=== PATIENT | male | born 1955 | race Caucasian/White ===

== ENCOUNTER 2019-05-04 07:23 | Day surgery (SDC) | payer MEDICARE, BC ==
[2019-05-04] MEDS ORDERED: Lidocaine 2% 100 MG/5 ML Syringe IVPUSH ONE (07:24)
[2019-05-04] MEDS ORDERED: Propofol 200 MG/20 ML SDV IV ONE (07:24)
[2019-05-04] MEDS ORDERED: Lactated Ringers 1,000 ML IV SCH (07:30)
[2019-05-04] MEDS ORDERED: Sodium Chloride 0.9% 10 ML Syringe FLUSH PRN (07:30)
--- NOTE | 2019-05-04 09:42 | PCM.OPNOTE ---
- General Post-Op/Procedure Note Date of Surgery/Procedure: 05/04/19 Operative Procedure(s): EGD and Colonoscopy with Polypectomy Findings: Samll trans Colon Polyp Pre Op Diagnosis: GERD. Colon Screening Post-Op Diagnosis: Same Anesthesia Technique: FELIX Primary Surgeon: Henry Yuan Anesthesia Provider: Diamond Mendoza Complications: None Condition: Good
--- NOTE | 2019-05-04 09:43 | PCM.HPR ---
H & P Addendum review - H & P Addendum Review Date of Original H & P: 04/15/19 Date Reviewed: 05/04/19 Time Reviewed: 09:00 Patient was Examined: No Changes
--- NOTE | 2019-05-04 14:07 | OR ---
DATE OF OPERATION: 05/04/2019 SURGEON: Henry Yuan MD PREOPERATIVE DIAGNOSES: 1. Gastroesophageal reflux disease. 2. Colon screening. POSTOPERATIVE DIAGNOSES: 1. Normal EGD. 2. Transverse colon polyp. PROCEDURE: 1. EGD. 2. Colonoscopy with polypectomy. ANESTHESIA: IV sedation. PROCEDURE IN DETAIL: The patient was brought to the procedure room, where he was placed on his left side and IV sedation administered. Oral bite block was placed and the upper endoscope advanced into the esophagus under direct vision without difficulty. Vocal cords were viewed and were normal. Scope was advanced to the level of the third portion of the duodenum without difficulty. Duodenal mucosal surfaces, mucosal surfaces and antrum were normal. Pylorus was normal. Body of the stomach was normal. Retroflexion reveals a normal appearing fundus. There was no hiatal hernia. The squamocolumnar junction is normal. There was no evidence of reflux esophagitis or erosions, ulcerations, strictures or other abnormalities. Air was removed in the stomach and the scope withdrawn through the remaining esophagus, which appears normal. The patient tolerated this portion of the procedure well. Next, colonoscopy was performed after digital rectal exam was done, which was normal. Colonoscope was inserted and advanced to the level of the cecum without difficulty. Cecal position was confirmed by identifying the appendiceal, lumen and ileocecal valve. Prep was good and surfaces were well visualized. Upon withdrawing the scope, the ascending colon was normal. In the transverse colon was a 5 mm sessile polyp removed with a hot biopsy forceps and sent for pathology review. The descending colon was normal. The sigmoid colon and rectum were normal. Retroflexion was normal. Air was removed and the scope withdrawn. The patient tolerated the procedure well and returned to recovery in stable condition. The patient will be contacted with the pathology report when it returns. If the polyp is adenomatous, he should consider repeat colonoscopy again in 3 years. Otherwise, he can wait 10 years until his next colon screening. Patient also had me evaluate a bulging in his right lower quadrant region. He had a previous appendectomy through a paramedian incision and has a lump in the area. He did have a right inguinal hernia repair with mesh many years ago. I am concerned that this may represent a ventral hernia, and we will have him obtain a CT scan for further evaluation. /[id number] INOCENCIO/YOVANY CC: Malou Albrecht MD [facility]
== END 2019-05-04 10:24 | disposition home or self-care (01) ==
LOC: FB.SDS 07:23
PROVIDERS: ATTEND Surgery
DX: Z12.11 Encounter for screening for malignant neoplasm of colon (principal); D12.3 Benign neoplasm of transverse colon; K21.9 Gastro-esophageal reflux disease without esophagitis; E11.9 Type 2 diabetes mellitus without complications; I10 Essential (primary) hypertension; E78.5 Hyperlipidemia, unspecified; F41.8 Other specified anxiety disorders; J44.9 Chronic obstructive pulmonary disease, unspecified; L82.1 Other seborrheic keratosis; J30.1 Allergic rhinitis due to pollen; M17.11 Unilateral primary osteoarthritis, right knee; G47.00 Insomnia, unspecified; F17.228 Nicotine dependence, chewing tobacco, with other nicotine-induced disorders; Z79.4 Long term (current) use of insulin; Z79.51 Long term (current) use of inhaled steroids; Z79.899 Other long term (current) drug therapy; Z79.82 Long term (current) use of aspirin
CPT/HCPCS: 00813-QZ; 74176; 82962; 88305; J2001; J2704; J7120